=== PATIENT | female | born 1985 | race Caucasian/White ===

== ENCOUNTER 2020-02-02 10:52 | Outpatient (CLI) | payer OTHER ==
[2020-02-02 18:37] LABS: ALBUMIN 4.1 g/dL (3.2-5.5); ALBUMIN/GLOBULIN RATIO 1.5 (1.0-2.2); ALKALINE PHOSPHATASE 48 IU/L (42-121); ALT ALANINE AMINOTRANSFERASE 14 IU/L (10-60); AST ASPARTATE AMINOTRANSFERASE 17 IU/L (10-42); BILIRUBIN,TOTAL 0.5 mg/dL (0.2-1.0); BUN - BLOOD UREA NITROGEN 11 mg/dL (6-20); CALCIUM 9.2 mg/dL (8.5-10.3); CARBON DIOXIDE - CO2 24 mmol/L (21-32); CHLORIDE 104 mmol/L (101-111); CHOL/HDL RATIO 2.9 (<4.4); CHOLESTEROL 218 mg/dL; CREATININE 0.6 mg/dL (0.4-1.0); GLUCOSE 100 mg/dL (70-100); HDL CHOLESTEROL 76 mg/dL; LDL CHOLESTEROL,CALCULATED 124 mg/dL; LDL/HDL RATIO 1.6 (<4.4); SODIUM 137 mmol/L (135-145); TOTAL PROTEIN 6.8 g/dL (6.7-8.2); VLDL CHOLESTEROL 18 mg/dL
[2020-02-02 18:41] LABS: BASOPHILS % (AUTO) 0.7 %; EOSINOPHILS # (AUTO) 0.2 10^3/uL (0.0-0.7); EOSINOPHILS % (AUTO) 3.5 %; LYMPHOCYTES # (AUTO) 2.6 10^3/uL (1.5-3.5); LYMPHOCYTES % (AUTO) 42.9 %; MEAN CORPUSCULAR HEMOGLOBIN 29.9 pg (27.0-31.0); MEAN CORPUSCULAR HGB CONC 32.1 g/dL (32.0-36.0); MEAN CORPUSCULAR VOLUME 93.1 fL (81.0-99.0); MEAN PLATELET VOLUME 9.7 fL (7.9-10.8); MONOCYTES # (AUTO) 0.5 10^3/uL (0.0-1.0); MONOCYTES % (AUTO) 7.9 %; NEUTROPHILS # (AUTO) 2.7 10^3/uL (1.5-6.6); NEUTROPHILS % (AUTO) 44.7 %; PLT - PLATELET COUNT 239 10^3/uL (130-450); RED BLOOD COUNT 4.35 10^6/uL (4.20-5.40); RED CELL DISTRIBUTION WIDTH 12.5 % (12.0-15.0); WHITE BLOOD COUNT 6.1 x10^3/uL (4.8-10.8)
== END 2020-02-02 23:59 | disposition home or self-care (01) ==
LOC: LAB.WCP 10:52
PROVIDERS: ATTEND Nurse Practitioner
DX: Z13.228 Encounter for screening for other metabolic disorders (principal); Z13.220 Encounter for screening for lipoid disorders
CPT/HCPCS: 36415; 80053; 80061; 83721; 85025

== ENCOUNTER 2021-02-16 09:41 | Outpatient (CLI) | payer OTHER ==
[2021-02-16 12:12] LABS: BASOPHILS % (AUTO) 0.5 %; EOSINOPHILS # (AUTO) 0.2 10^3/uL (0.0-0.7); EOSINOPHILS % (AUTO) 3.5 %; HCT - HEMATOCRIT 41.4 % (37.0-47.0); HGB - HEMOGLOBIN 13.4 g/dL (12.0-16.0); LYMPHOCYTES # (AUTO) 2.5 10^3/uL (1.5-3.5); LYMPHOCYTES % (AUTO) 44.8 %; MEAN CORPUSCULAR HEMOGLOBIN 29.8 pg (27.0-31.0); MEAN CORPUSCULAR HGB CONC 32.4 g/dL (32.0-36.0); MEAN CORPUSCULAR VOLUME 92.2 fL (81.0-99.0); MEAN PLATELET VOLUME 9.9 fL (7.9-10.8); MONOCYTES # (AUTO) 0.5 10^3/uL (0.0-1.0); NEUTROPHILS # (AUTO) 2.4 10^3/uL (1.5-6.6); PLT - PLATELET COUNT 257 10^3/uL (130-450); RED BLOOD COUNT 4.49 10^6/uL (4.20-5.40); RED CELL DISTRIBUTION WIDTH 12.2 % (12.0-15.0); WHITE BLOOD COUNT 5.7 x10^3/uL (4.8-10.8)
[2021-02-16 12:36] LABS: ALBUMIN 4.5 g/dL (3.2-5.5); ALBUMIN/GLOBULIN RATIO 1.7 (1.0-2.2); ALKALINE PHOSPHATASE 67 IU/L (42-121); ALT ALANINE AMINOTRANSFERASE 15 IU/L (10-60); AST ASPARTATE AMINOTRANSFERASE 16 IU/L (10-42); BILIRUBIN,TOTAL 0.7 mg/dL (0.2-1.0); BUN - BLOOD UREA NITROGEN 10 mg/dL (6-20); CALCIUM 9.1 mg/dL (8.5-10.3); CARBON DIOXIDE - CO2 26 mmol/L (21-32); CHLORIDE 101 mmol/L (101-111); CHOL/HDL RATIO 3.7 (<4.4); CHOLESTEROL 293 mg/dL; CREATININE 0.6 mg/dL (0.4-1.0); GFR - MDRD 115 (>89); GLUCOSE 96 mg/dL (70-100); HDL CHOLESTEROL 79 mg/dL; LDL CHOLESTEROL,CALCULATED 203 mg/dL; LDL/HDL RATIO 2.6 (<4.4); SODIUM 136 mmol/L (135-145); TOTAL PROTEIN 7.1 g/dL (6.7-8.2); TRIGLYCERIDES 53 mg/dL; VLDL CHOLESTEROL 11 mg/dL
== END 2021-02-16 23:59 | disposition home or self-care (01) ==
LOC: LAB.WCP 09:41
PROVIDERS: ATTEND Nurse Practitioner
DX: R53.83 Other fatigue (principal); Z13.220 Encounter for screening for lipoid disorders
CPT/HCPCS: 36415; 80053; 80061; 81599; 83721; 84402; 84443; 85025

== ENCOUNTER 2021-02-23 08:00 | Outpatient (CLI) | payer OTHER | END 2021-02-23 23:59 | disposition home or self-care (01) | LOC: LAB.WCP 08:00 | PROVIDERS: ATTEND Nurse Practitioner | DX: R53.83 Other fatigue (principal) | CPT/HCPCS: 81599; 84402 ==

== ENCOUNTER 2021-03-07 14:09 | Outpatient (CLI) | payer OTHER ==
--- NOTE | 2021-03-08 17:09 | Ultrasound Report ---
PROCEDURE: Pelvic w/Transvaginal INDICATIONS: ELEVATED TESTOSTERONE LEVELS TECHNIQUE: Real-time scanning was performed of the pelvic organs, with image documentation. Additional endovagi nal scanning was necessary due to incomplete visualization of the adnexal and endometrial structures by transabdominal scanning. COMPARISON: None. FINDINGS: No pathologic free abdominal or pelvic fluid. Uterus: Bicornuate uterus is seen. Right horn measures 7.7 x 2.5 x 6.6 cm in size. Left horn measures 8.6 x 2.3 x 6.6 cm in size. No discrete uterine fibroid is seen. Right endometrial stripe measures 5 .1 mm in thickness with mildly heterogeneous endometrial echotexture and internal cystic area. Left e ndometrium measures 4.2 mm in thickness with mildly heterogeneous echotexture and internal cystic are as. No hypervascularity or discrete endometrial mass is seen. Ovaries: Right ovary measures 4.4 x 2.4 x 2.4 cm in size. Left ovary measures 3.7 x 1.8 x 3.1 cm in size. Greater than 12 follicles are seen in bilateral ovaries. No solid-appearing ovarian lesion. Nor mal blood flow is seen in bilateral ovaries on color Doppler images. IMPRESSION: 1. Bicornuate uterus as above. No discrete endometrial mass or fluid. Mildly heterogeneous endometria l echotexture with internal cystic areas. No discrete uterine fibroids. 2. Greater than 12 follicles are seen in bilateral ovaries which can be seen in the case of polycysti c ovary syndrome, suggest clinical correlation. No solid-appearing ovarian lesion. No evidence of ova jonathan torsion. Reviewed by: J Luis Davison MD on 03/08/2021 5:08 PM PDT Approved by: J Luis Davison MD on 03/08/2021 5:08 PM PDT Station ID: [id number]
== END 2021-03-07 14:10 | disposition home or self-care (01) ==
LOC: DI 14:09
PROVIDERS: ATTEND Nurse Practitioner
DX: R79.89 Other specified abnormal findings of blood chemistry (principal); Q51.3 Bicornate uterus

== ENCOUNTER 2021-03-29 08:00 | Outpatient (CLI) | payer OTHER ==
[2021-04-02 16:31] LABS: DHEA SULFATE 98 mcg/dL (23-266)
== END 2021-03-29 23:59 | disposition home or self-care (01) ==
LOC: LAB.WCP 08:00
PROVIDERS: ATTEND Obstetrics & Gynecology
DX: E28.2 Polycystic ovarian syndrome (principal); Z31.69 Encounter for other general counseling and advice on procreation
CPT/HCPCS: 36415; 81220; 81329; 81599; 82627

== ENCOUNTER 2021-06-28 07:23 | Outpatient (CLI) | payer OTHER ==
[2021-06-28 12:49] LABS: ESTIMATED AVERAGE GLUCOSE 105 mg/dL (70-100); HEMOGLOBIN A1c% 5.3 % (4.27-6.07)
[2021-06-28 13:29] LABS: ALBUMIN 4.2 g/dL (3.2-5.5); ALBUMIN/GLOBULIN RATIO 1.6 (1.0-2.2); ALKALINE PHOSPHATASE 51 IU/L (42-121); ALT ALANINE AMINOTRANSFERASE 15 IU/L (10-60); AST ASPARTATE AMINOTRANSFERASE 16 IU/L (10-42); BILIRUBIN,TOTAL 0.5 mg/dL (0.2-1.0); BUN - BLOOD UREA NITROGEN 12 mg/dL (6-20); CALCIUM 8.9 mg/dL (8.5-10.3); CARBON DIOXIDE - CO2 27 mmol/L (21-32); CHLORIDE 103 mmol/L (101-111); CHOL/HDL RATIO 2.2 (<4.4); CHOLESTEROL 164 mg/dL; CREATININE 0.6 mg/dL (0.4-1.0); GFR - MDRD 114 (>89); GLUCOSE 91 mg/dL (70-100); HDL CHOLESTEROL 75 mg/dL; POTASSIUM 4.1 mmol/L (3.5-5.0); SODIUM 137 mmol/L (135-145); TOTAL PROTEIN 6.8 g/dL (6.7-8.2); TRIGLYCERIDES 30 mg/dL
== END 2021-06-28 07:24 | disposition home or self-care (01) ==
LOC: LAB.N 07:23
PROVIDERS: ATTEND Nurse Practitioner
DX: E78.5 Hyperlipidemia, unspecified (principal); E78.01 Familial hypercholesterolemia; E28.2 Polycystic ovarian syndrome; Z31.69 Encounter for other general counseling and advice on procreation
CPT/HCPCS: 36415; 80053; 80061; 83036; 83721

== ENCOUNTER 2022-02-28 07:53 | Outpatient (CLI) | payer OTHER ==
--- NOTE | 2022-03-01 10:52 | Mammography Report ---
BILATERAL DIGITAL DIAGNOSTIC MAMMOGRAM 3D/2D: 02/28/2022 CLINICAL: Baseline. Pt said doctor felt bilateral lumps in breasts and wanted baseline. No prior exams were available for comparison. Both breasts are extremely dense, which lowers the sensitivity of mammography (category d />75% gland ular tissue). No significant masses, calcifications, or other findings are seen in either breast. IMPRESSION: NEGATIVE There is no mammographic evidence of malignancy. A 5 year screening mammogram is recommended. This exam was interpreted at Station ID: [id number]. NOTE: For mammograms, a report in lay terms will be sent to the patient. Approximately 15% of breast malignancies will not be visualized mammographically. In the management of a palpable breast mass, a negative mammogram must not discourage biopsy of a clinically suspicious lesion. Electronically Signed By: David Zayas M.D., jr/shae:02/28/2022 09:22:27 ACR BI-RADS Category 1: Negative 3341F PARENCHYMAL PATTERN: (VD) - The breast(s) demonstrate(s) extremely dense parenchyma, limiting the sen sitivity of mammography. BI-RADS CATEGORY: (1) - 1 Mammogram [id number] 5 year screening LATERALITY: (B)
== END 2022-02-28 07:54 | disposition home or self-care (01) ==
LOC: DI 07:53
PROVIDERS: ATTEND Nurse Practitioner
DX: N64.59 Other signs and symptoms in breast (principal)

== ENCOUNTER 2022-05-09 10:30 | Outpatient (CLI) | payer OTHER | END 2022-05-09 10:31 | disposition home or self-care (01) | LOC: MAC.INF 10:30 | PROVIDERS: ATTEND Family Medicine | DX: I49.1 Atrial premature depolarization (principal); I49.3 Ventricular premature depolarization; I49.8 Other specified cardiac arrhythmias; I47.1 Supraventricular tachycardia | CPT/HCPCS: 93248 ==

== ENCOUNTER 2022-10-04 09:16 | Outpatient (CLI) | payer OTHER ==
[2022-10-04 12:04] LABS: ESTIMATED AVERAGE GLUCOSE 103 mg/dL (70-100); HEMOGLOBIN A1c% 5.2 % (4.27-6.07)
[2022-10-04 14:27] LABS: CHOL/HDL RATIO 3.3 (<4.4); CHOLESTEROL 236 mg/dL; HDL CHOLESTEROL 72 mg/dL; TRIGLYCERIDES 36 mg/dL
== END 2022-10-04 09:17 | disposition home or self-care (01) ==
LOC: LAB.N 09:16
PROVIDERS: ATTEND Obstetrics & Gynecology
DX: E28.2 Polycystic ovarian syndrome (principal)
CPT/HCPCS: 36415; 80061; 83036; 83721

== ENCOUNTER 2022-11-07 10:38 | Outpatient (CLI) | payer OTHER | END 2022-11-07 10:39 | disposition home or self-care (01) | LOC: LAB.N 10:38 | PROVIDERS: ATTEND Obstetrics & Gynecology | DX: E28.2 Polycystic ovarian syndrome (principal) | CPT/HCPCS: 36415; 84144 ==

== ENCOUNTER 2022-11-13 13:46 | Outpatient (CLI) | payer OTHER | END 2022-11-13 13:47 | disposition home or self-care (01) | LOC: LAB.N 13:46 | PROVIDERS: ATTEND Obstetrics & Gynecology | DX: E28.2 Polycystic ovarian syndrome (principal) | CPT/HCPCS: 36415; 84144 ==

== ENCOUNTER 2023-01-21 13:14 | Outpatient (CLI) | payer OTHER | END 2023-01-21 13:15 | disposition home or self-care (01) | LOC: LAB.N 13:14 | PROVIDERS: ATTEND Obstetrics & Gynecology | DX: E78.5 Hyperlipidemia, unspecified (principal); E28.2 Polycystic ovarian syndrome | CPT/HCPCS: 36415; 83721; 84144; 84403 ==

== ENCOUNTER 2023-01-24 08:54 | Outpatient (CLI) | payer OTHER | END 2023-01-24 08:55 | disposition home or self-care (01) | LOC: LAB.N 08:54 | PROVIDERS: ATTEND Obstetrics & Gynecology | DX: E28.2 Polycystic ovarian syndrome (principal) | CPT/HCPCS: 36415; 84144 ==

== ENCOUNTER 2023-03-04 10:29 | Outpatient (CLI) | payer OTHER | END 2023-03-04 10:30 | disposition home or self-care (01) | LOC: LAB.N 10:29 | PROVIDERS: ATTEND Obstetrics & Gynecology | DX: E28.2 Polycystic ovarian syndrome (principal) | CPT/HCPCS: 36415; 84144 ==

== ENCOUNTER 2023-04-12 09:24 | Outpatient (CLI) | payer OTHER | END 2023-04-12 09:25 | disposition home or self-care (01) | LOC: LAB.N 09:24 | PROVIDERS: ATTEND Obstetrics & Gynecology | DX: E28.2 Polycystic ovarian syndrome (principal) | CPT/HCPCS: 36415; 84144 ==

== ENCOUNTER 2023-06-03 15:02 | Outpatient (CLI) | payer OTHER | END 2023-06-03 15:03 | disposition home or self-care (01) | LOC: LAB.N 15:02 | PROVIDERS: ATTEND Obstetrics & Gynecology | DX: E28.2 Polycystic ovarian syndrome (principal) | CPT/HCPCS: 84144 ==

== ENCOUNTER 2023-07-01 14:27 | Outpatient (CLI) | payer OTHER | END 2023-07-01 14:28 | disposition home or self-care (01) | LOC: LAB.N 14:27 | PROVIDERS: ATTEND Obstetrics & Gynecology | DX: N91.5 Oligomenorrhea, unspecified (principal) | CPT/HCPCS: 84144 ==

== ENCOUNTER 2023-07-14 11:36 | Outpatient (CLI) | payer OTHER | END 2023-07-14 11:37 | disposition home or self-care (01) | LOC: LAB.N 11:36 | PROVIDERS: ATTEND Obstetrics & Gynecology | DX: Z32.01 Encounter for pregnancy test, result positive (principal) | CPT/HCPCS: 36415; 84702 ==

== ENCOUNTER 2023-07-16 10:46 | Outpatient (CLI) | payer OTHER | END 2023-07-16 10:47 | disposition home or self-care (01) | LOC: LAB.N 10:46 | PROVIDERS: ATTEND Obstetrics & Gynecology | DX: Z32.01 Encounter for pregnancy test, result positive (principal) | CPT/HCPCS: 36415; 84702 ==

== ENCOUNTER 2023-07-23 08:59 | Outpatient (CLI) | payer OTHER | END 2023-07-23 09:00 | disposition home or self-care (01) | LOC: LAB.N 08:59 | PROVIDERS: ATTEND Obstetrics & Gynecology | DX: Z32.01 Encounter for pregnancy test, result positive (principal) | CPT/HCPCS: 36415; 84702 ==

== ENCOUNTER 2023-08-13 17:44 | Outpatient (CLI) | payer OTHER | END 2023-08-13 17:45 | disposition home or self-care (01) | LOC: LAB.N 17:44 | PROVIDERS: ATTEND Obstetrics & Gynecology | DX: N91.5 Oligomenorrhea, unspecified (principal) | CPT/HCPCS: 36415; 84144 ==

== ENCOUNTER 2023-09-08 18:03 | Outpatient (CLI) | payer OTHER | END 2023-09-08 18:04 | disposition home or self-care (01) | LOC: LAB.N 18:03 | PROVIDERS: ATTEND Obstetrics & Gynecology | DX: N91.5 Oligomenorrhea, unspecified (principal) | CPT/HCPCS: 36415; 84144 ==

== ENCOUNTER 2023-11-01 09:42 | Outpatient (CLI) | payer OTHER | END 2023-11-01 09:43 | disposition home or self-care (01) | LOC: LAB.N 09:42 | PROVIDERS: ATTEND Obstetrics & Gynecology | DX: N97.0 Female infertility associated with anovulation (principal) | CPT/HCPCS: 36415; 84144 ==